=== PATIENT | male | born 1935 | race Caucasian/White ===

== ENCOUNTER 2018-06-11 11:21 | Outpatient (CLI) | payer MEDICARE ==
--- NOTE | 2018-06-11 18:29 | RAD ---
CHEST TWO VIEWS 06/11/18 The heart is mildly enlarged but there are no congestive changes or pleural effusions. No pulmonary i nfiltrates, cavities, or signs of adenopathy were found. The prominence of the mediastinum on each si de of the trachea is felt to be due to tortuous great vessels. There is no deviation of the trachea. There is loss of the acromiohumeral space in the left shoulder suggesting chronic rotator cuff thinni ng. IMPRESSION: Mild cardiomegaly but no acute thoracic findings. No evidence of active disease. POS: HOME
== END 2018-06-11 11:22 | disposition home or self-care (01) ==
LOC: BURRAD 11:21
PROVIDERS: ATTEND Nurse Practitioner Family
DX: Z11.1 Encounter for screening for respiratory tuberculosis (principal); I51.7 Cardiomegaly
CPT/HCPCS: 71046